=== PATIENT | male | born 1990 | race Caucasian/White ===

== ENCOUNTER → 2017-06-20 | Outpatient (CLI) | payer OTHER ==
[~2017-06-20] MED LIST: ADDERALL 30 MG30 MG PO; DIATRIZOATE MEGL/DIATRIZOA SOD 120 ML BTL PO ONE; IOPAMIDOL 370 MG/ML 200 ML INFUS..BTL INJ ONE; SODIUM CHLORIDE 0.9% 50ML 50 ML ONE
--- NOTE | 2017-06-20 19:02 | Diagnostic Imaging Report ---
EXAM: CT Pelvis WITH contrast INDICATION: Perirectal pain. COMPARISON: None. TECHNIQUE: Pelvis were scanned utilizing a multidetector helical scanner from the iliac crest to the pubic symphysis after administration of IV contrast. Coronal and sagittal reformations were obtained. Routine protocol was performed. Scan was performed when during portal venous phase. IV CONTRAST: 100 mL of Isovue-370 ORAL CONTRAST: Gastroview COMPLICATIONS: None RADIATION DOSE: Total DLP: 237.7 mGy*cm Estimated effective dose: (DLP x 0.015 x size factor) mSv CTDIvol has been reviewed. It is below the limits set by the Radiation Protocol Committee (RPC). FINDINGS: LINES and TUBES: None. GI TRACT: Mild rectal wall thickening. No evidence of bowel obstruction. PELVIC ORGANS/BLADDER: Unremarkable. LYMPH NODES: Prominent inguinal lymph nodes, measuring up to 1 cm in short axis. No pelvic sidewall adenopathy. VESSELS: Unremarkable. PERITONEUM / RETROPERITONEUM: No free air or fluid. BONES: Unremarkable. SOFT TISSUES: Unremarkable. IMPRESSION: 1. Rectal wall thickening may represent infectious/inflammatory process like proctitis. 2. No evidence of perirectal abscess. 3. Prominent inguinal lymph nodes, likely reactive Signed by: Dr. Mehran Escobar MD on 06/20/2017 6:59 PM
== END ==
LOC: CT 15:56
PROVIDERS: ATTEND Internal Medicine Gastroenterology
DX: K62.89 Other specified diseases of anus and rectum (principal)
CPT/HCPCS: 72193; Q9963; Q9967